=== PATIENT | male | born 1990 | race Two or more races ===

== ENCOUNTER 2019-09-12 08:25 | Emergency (ER) | payer SELFPAY ==
[~2019-09-12] VITALS: Ht 170.2 cm; Wt 58.5 kg
--- NOTE | 2019-09-12 08:30 | NUR ---
[id number], from street, drunk running around naked, denies taking any drugs. Patient awake alert and oriented, verbally inappropriate. Needs attended. Kept comfortable.
--- NOTE | 2019-09-12 08:39 | NUR ---
SEEN AND EXAMINED BY .
--- NOTE | 2019-09-12 15:58 | NUR ---
Patient given written and verbal discharge instructions. Patient verbalizes understanding of instructions. Patient is ambulatory with steady gait. Refuses offer of retirement placement. Patient given list of available shelters in surrounding area.
[2019-09-12 15:59] VITALS: BP 110/55
== END 2019-09-12 16:08 | disposition home or self-care (01) ==
LOC: ER 08:28
DX: R45.1 Restlessness and agitation (principal); F10.129 Alcohol abuse with intoxication, unspecified; Y90.9 Presence of alcohol in blood, level not specified
CPT/HCPCS: 82962-TC

== ENCOUNTER 2019-10-05 16:54 | Emergency (ER) | payer MEDICAID ==
[~2019-10-05] VITALS: Ht 170.2 cm; Wt 47.6 kg
[2019-10-05] MEDS ORDERED: KETOROLAC TROMETHAMINE INJ 60 MG/2 ML VIAL IM ONE (18:00)
[2019-10-05] MEDS ORDERED: KETOROLAC TROMETHAMINE INJ 30 MG/ML VIAL ONE (18:40)
--- NOTE | 2019-10-05 18:55 | NUR ---
Patient awake alert pain to his jaw medication given
--- NOTE | 2019-10-05 19:06 | NUR ---
CALLED [facility] [place] [phone] NEEL FAX IS [phone]
[2019-10-05] MEDS ORDERED: CEFAZOLIN 1 GM in IV D5W 50 ML IV ONE (19:30)
[2019-10-05] MEDS ORDERED: TDAP [DIPH/PERTUSSIS/TET] 0.5 ML VIAL IM ONE ×2 (19:30→20:02)
--- NOTE | 2019-10-05 19:42 | NUR ---
Call from [facility] [place], per Shukri unable to accept patient.
[2019-10-05 19:50] LABS: BASOPHILS % (AUTO) 0.4 % (0.0-2.0); EOSINOPHILS % (AUTO) 0.8 % (0.0-6.0); HEMATOCRIT 44 % (39-51); HEMOGLOBIN 14.6 g/dL (13.5-17.5); LYMPHOCYTES # (AUTO) 1.4 /CMM (0.8-4.8); LYMPHOCYTES % (AUTO) 13.5 % (20.0-44.0); MEAN CORPUSCULAR HGB CONC 33 g/dl (31.0-36.0); MEAN CORPUSCULAR VOLUME 90 fL (80-96); MONOCYTES # (AUTO) 1.1 /CMM (0.1-1.30); NEUTROPHILS % (AUTO) 75.3 % (43.0-81.0); PLATELET COUNT (AUTO) 256 /CMM (150-450); RED BLOOD CELL COUNT(AUTO) 4.87 MIL/uL (4.5-6.0); WHITE BLOOD COUNT (AUTO) 10.7 K/uL (4.3-11.0)
--- NOTE | 2019-10-05 19:57 | NUR ---
CALLED PHARMACY FOR ANCEF ANTIBIOTIC BECAUSE THERE IS NONE IN ER.
--- NOTE | 2019-10-05 20:06 | NUR ---
[facility] called for higher level of care. At capacity.
--- NOTE | 2019-10-05 20:10 | NUR ---
[facility] called for higher level of care. No capacity.
[2019-10-05 20:16] LABS: CALCIUM, SERUM 9.5 mg/dL (8.5-10.1); CREATININE 0.9 mg/dL (0.6-1.3); POTASSIUM 3.8 mmol/L (3.5-5.1)
[2019-10-05] MEDS ORDERED: MORPHINE SULFATE INJ 2 MG/ML DISP.SYRIN IV ONE (21:00)
[2019-10-05] MEDS ORDERED: MORPHINE SULFATE INJ 2 MG/ML DISP.SYRIN ONE (21:13)
[2019-10-05] MEDS ORDERED: MORPHINE SULFATE INJ 4 MG/ML DISP.SYRIN ONE (21:13)
--- NOTE | 2019-10-05 21:28 | NUR ---
IV removed. Catheter intact and site benign. Pressure and 4x4 applied to site. No bleeding noted.
--- NOTE | 2019-10-05 21:28 | NUR ---
Patient discharged to home in stable condition. Written and verbal after care instructions given. Patient verbalizes understanding of instruction.
--- NOTE | 2019-10-05 21:31 | NUR ---
PATIENT GIVEN LIST AND DIRECTIONS OF MULTIPLE HOSPITALS FOR INPATIENT SERVICES.
[2019-10-05 21:35] VITALS: BP 110/78
== END 2019-10-05 21:36 | disposition home or self-care (01) ==
LOC: ER 16:56
DX: S02.69XA Fracture of mandible of other specified site, initial encounter for closed fracture (principal); Z60.2 Problems related to living alone; W22.8XXA Striking against or struck by other objects, initial encounter; Y93.89 Activity, other specified; Y92.89 Other specified places as the place of occurrence of the external cause; Y99.8 Other external cause status
CPT/HCPCS: 36415; 70486; 80048; 85025; 85730; 86850; 90471; 90715; 96365; 96372; 96375; 99284; J0690; J1885; J2270 ×2; J7060